=== PATIENT | female | born 1985 | race Native Hawaiian/Other Pacific Islander ===

== ENCOUNTER 2016-11-29 16:21 | Emergency (ER) | payer BC ==
[2016-11-29 17:18] LABS: MEAN CELL VOLUME 89.3 FL (80.0-100.0); MEAN CORPUSCULAR HEMOGLOBIN 30.4 PG (27.0-34.0); PLATELET COUNT 221 TH/MM3 (150-450); RED BLOOD COUNT 3.81 MIL/MM3 (4.00-5.30); RED CELL DISTRIBUTION WIDTH 12.8 % (11.6-17.2); REVIEW FLAG FINAL; WHITE BLOOD COUNT 6.7 TH/MM3 (4.0-11.0)
[2016-11-29 17:33] LABS: BACTERIA, URINE OCC /hpf; BLOOD, URINE NEG (NEG); COMMENT (UR) CULT NOT INDICATED; CULTURE IF INDICATED CULT NOT INDICATED; GLUCOSE,URINE NEG (NEG); KETONE, URINE TRACE mg/dL (NEG); NITRITE,URINE NEG (NEG); PH, URINE 6.5 (5.0-8.5); SQUAMOUS EPITHELIAL CELL URINE 2 /hpf (0-5); URINE COLOR LIGHT-YELLOW (YELLW/STRAW)
[2016-11-29 17:50] LABS: ALT (GPT) 12 U/L (10-53); ANION GAP 11 MEQ/L (5-15); AST (GOT) 14 U/L (15-37); BICARBONATE 22.4 MEQ/L (21.0-32.0); BLOOD UREA NITROGEN 7 MG/DL (7-18); CHLORIDE 106 MEQ/L (98-107); GLOMERULAR FILTRATION RATE 161 ML/MIN (>89); POTASSIUM 3.6 MEQ/L (3.5-5.1); SODIUM (NA) 139 MEQ/L (136-145); URIC ACID 4.5 MG/DL (2.6-6.0)
[2016-11-29 17:52] LABS: ALKALINE PHOSPHATASE 241 U/L (45-117); TOTAL BILIRUBIN ADULT 0.2 MG/DL (0.2-1.0)
[2016-11-29 18:29] VITALS: BP 117/70; PULSE 87
--- NOTE | 2016-11-29 18:34 | PD ---
HPI Chief Complaint This patient sent over for blood pressure evaluations [facility] eval lab from Dr. Leal's office Date Seen: Nov 29, 2016 Travel History International Travel<30 Days: No Contact w/Intl Traveler<30Days: No Known Affected Area: No History of Present Illness HPI This patient is a 31-year-old white female at 36 weeks referred over for [facility] evaluation. She denies pain bleeding or rupture the membranes. heart rate tracing is reactive is not jason. She states that her blood pressures periodically been elevated on some of her visits that she has no history of hypertension prior to . Today the office her blood pressure was 140-150/90-100 and she was sent over. Para: 0 : 1 History Past Medical History Medical History: Denies Significant Hx Review of Systems General / Constitutional: No: Fever, Weight Gain, Chills, Other HENT: No: Headaches, Vertigo, Lightheadedness Gastrointestinal: No: Nausea, Vomiting, Diarrhea Physical Exam Narrative GENERAL: Well-nourished, well-developed patient. SKIN: Warm and dry. HEAD: Normocephalic and atraumatic. EYES: No scleral icterus. No injection or drainage. ENT: No nasal drainage noted. Mucous membranes pink. Airway patent. NECK: Supple, trachea midline. No JVD. CARDIOVASCULAR: Regular rate and rhythm without murmurs, gallops, or rubs. RESPIRATORY: Breath sounds equal bilaterally. No accessory muscle use. BREASTS: Bilateral exam showed no masses , no retractions, no nipple discharge. ABDOMEN/GI: Abdomen soft, non-tender, bowel sounds present, no rebound, no guarding Gravid to [-36] weeks size Fundal Height: [-35 cm] GENITOURINARY: External Genitalia: intact and normal in appearance BUS glands: [-] Cervix: [-not checked today] Membranes: [intact ] Uterine Contractions: [irreg-] FHT's: Category: [1-] Baseline: [144-] Reactive: [-yes] Variability: [mod-] Decels: [none-] EXTREMITIES: No cyanosis , + 3-4+ edema with pitting . BACK: Nontender without obvious deformity. No CVA tenderness. NEUROLOGICAL: Awake and alert. Motor and sensory grossly within normal limits. Five out of 5 muscle strength in all muscle groups. Normal speech.2+ DTRs Data Data Orders Vital Signs (Adult) .ON ADMISSION (11/29/16 16:44) ^ Labor Status (11/29/16 16:44) Urinalysis - C+S If Indicated (11/29/16 16:44) Cbc No Diff, Includes Plts (11/29/16 16:44) Comprehensive Metabolic Panel (11/29/16 16:44) Uric Acid (11/29/16 16:44) Labs Laboratory Tests Test 11/29/16 11/29/16 16:45 16:56 Urine Color LIGHT-YELLOW Urine Turbidity CLEAR Urine pH 6.5 Urine Specific [place] 1.006 Urine Protein NEG Urine Glucose (UA) NEG Urine Ketones TRACE Urine Occult Blood NEG Urine Nitrite NEG Urine Bilirubin NEG Urine Urobilinogen LESS THAN 2.0 Urine Leukocyte Esterase LARGE Urine RBC 1 Urine WBC 2 Urine Squamous Epithelial 2 Cells Urine Bacteria OCC Microscopic Urinalysis Comment CULT NOT INDICATED White Blood Count 6.7 Red Blood Count 3.81 Hemoglobin 11.6 Hematocrit 34.0 Mean Corpuscular Volume 89.3 Mean Corpuscular Hemoglobin 30.4 Mean Corpuscular Hemoglobin 34.0 Concent Red Cell Distribution Width 12.8 Platelet Count 221 Mean Platelet Volume 8.6 Sodium Level 139 Potassium Level 3.6 Chloride Level 106 Carbon Dioxide Level 22.4 Anion Gap 11 Blood Urea Nitrogen 7 Creatinine 0.45 Estimat Glomerular Filtration 161 Rate Random Glucose 75 Uric Acid 4.5 Calcium Level 8.7 Total Bilirubin 0.2 Aspartate Amino Transf 14 (AST/SGOT) Alanine Aminotransferase 12 (ALT/SGPT) Alkaline Phosphatase 241 Total Protein 6.8 Albumin 2.8 MDM Interpretation(s) This patient is a 31-year-old white female at [address] Leal and sent over for [facility] evaluation. She's had a couple of the high pressures prior today and today her pressure was up 140 over 90s to 150s over 100. She denies any pain bleeding or rupture the membranes baby is active denies headache or right upper quadrant pain visual changes. She does have 3-4 + edema and pretibial area with pitting normal DTRs noted blood pressures here within normal limits 130/80 and 117/70, urinalysis is negative protein, blood work all within normal limits normal liver functions and normal platelets. Patient states that she feels much better when she's been laying down for a day or [address] Leal gave her a do not work ordered today and note so that she can stay off her feet in at bedrest until delivery basically. I agree with that assessment and plan and she will follow-up with because planned to contact the office to see if he wants her to come back sooner like the end of this week, she'll be discharged today Plan Plan the patient to be at bedrest at home leaking of the bathroom eat and go to her doctor, she is to elevate her legs to help the swelling. Follow-up with her OB doctor as already and advised Diagnosis Diagnosis: Primary Impression: Hypertension affecting , antepartum, third trimester Additional Impression: Edema during in third trimester Disposition: 01 DISCHARGE HOME Condition: Stable Patient Instructions: General Instructions, Movement (ED) Departure Forms: Tests/Procedures Kd Covarrubias II, MD Nov 29, 2016 18:34
== END 2016-11-29 17:00 | disposition home or self-care (01) ==
LOC: HOBED 16:21
DX: O16.3 Unspecified maternal hypertension, third trimester (principal); R60.0 Localized edema; Z3A.36 36 weeks gestation of pregnancy
CPT/HCPCS: 36415; 80053; 81001; 84550; 85027

== ENCOUNTER 2016-12-05 17:05 | Emergency (ER) | payer BC ==
--- NOTE | 2016-12-05 17:25 | PD ---
HPI Chief Complaint BP check Date Seen: Dec 05, 2016 Travel History International Travel<30 Days: No Contact w/Intl Traveler<30Days: No Known Affected Area: No History of Present Illness HPI 31 yo @ 37w2d with EDC 12-24-2016. care with Dr. Leal. Patient has had intermittent elevated BPs in the clinic. She was evaluated one week ago in [place] for this. BPs where WNL and labs were normal. She was asymptomatic. Today in the clinic she again had elevated BPs 180/[address] Leal. She is asymptomatic, no VOSS, visual changed, abdominal pain, and no changes in her LE swelling. Her BPs in [place] today were again all WNL. History Past Medical History Medical History: Denies Significant Hx Obstetric History Obstetric History G1 Past Surgical History Surgical History: No Previous Surgery Family History Family History: Negative Social History Alcohol Use: No Tobacco Use: No Substance Abuse: No Review of Systems General / Constitutional: No: Fever, Chills Eyes: No: Blurred Vision, Visual changes HENT: No: Headaches, Lightheadedness Cardiovascular: No: Chest Pain or Discomfort, Palpitations Respiratory: No: Cough, Short of Breath Gastrointestinal: No: Nausea, Vomiting, Abdominal Pain Genitourinary: No: Urgency, Frequency, Discharge, Vaginal Bleeding Musculoskeletal: No: Limited ROM, Weakness Skin: No Rash, No Itching Neurologic: No: Dizziness, Focal Abnormalities Physical Exam Narrative GENERAL: Well-nourished, well-developed patient. SKIN: Warm and dry. HEAD: Normocephalic and atraumatic. EYES: No scleral icterus. No injection or drainage. ENT: No nasal drainage noted. Mucous membranes pink. Airway patent. NECK: , trachea midline. No JVD. CARDIOVASCULAR: Regular rate, Pulse 100 RESPIRATORY: No accessory muscle use. ABDOMEN/GI: Abdomen soft, non-tender, no rebound, no guarding Gravid TOCO: Rare UC FHT's: Category: I Baseline: 125 Reactive: +accelerations Variability: mod Decels: [-] EXTREMITIES: No cyanosis. +2 non-pitting edema. DTR +2 normal in LE and UE, no clonus BACK: Nontender without obvious deformity. Normal ROM NEUROLOGICAL: Awake and alert. Motor and sensory grossly within normal limits. Normal speech. Data Data Vital Signs Reviewed: Yes Orders Vital Signs (Adult) .ON ADMISSION (12/05/16 17:21) ^ Labor Status (12/05/16 17:21) Urinalysis - C+S If Indicated (12/05/16 17:21) ^ Non Stress Test (12/05/16 17:21) Cbc No Diff, Includes Plts (12/05/16 17:21) Comprehensive Metabolic Panel (12/05/16 17:21) Uric Acid (12/05/16 17:21) Labs Laboratory Tests Test 12/05/16 12/05/16 15:15 18:05 Urine Color YELLOW (YELLW/STRAW) Urine Turbidity HAZY (CLEAR) Urine pH 7.0 (5.0-8.5) Urine Specific [place] 1.009 (1.002-1.035) Urine Protein NEG mg/dL (NEG-TRACE) Urine Glucose (UA) NEG mg/dL (NEG) Urine Ketones NEG mg/dL (NEG) Urine Occult Blood NEG (NEG) Urine Nitrite NEG (NEG) Urine Bilirubin NEG (NEG) Urine Urobilinogen LESS THAN 2.0 MG/DL (LESS THAN 2.0) Urine Leukocyte Esterase LARGE (NEG) Urine RBC 1 /hpf (0-3) Urine WBC 3 /hpf (0-5) Urine Squamous Epithelial 3 /hpf (0-5) Cells Urine Bacteria OCC /hpf (NONE) Urine Mucus FEW /lpf (OCC) Microscopic Urinalysis Comment CULT NOT INDICATED White Blood Count 6.3 TH/MM3 (4.0-11.0) Red Blood Count 3.68 MIL/MM3 (4.00-5.30) Hemoglobin 11.3 GM/DL (11.6-15.3) Hematocrit 33.0 % (35.0-46.0) Mean Corpuscular Volume 89.8 FL (80.0-100.0) Mean Corpuscular Hemoglobin 30.6 PG (27.0-34.0) Mean Corpuscular Hemoglobin 34.1 % Concent (32.0-36.0) Red Cell Distribution Width 13.2 % (11.6-17.2) Platelet Count 205 TH/MM3 (150-450) Mean Platelet Volume 8.6 FL (7.0-11.0) Sodium Level 140 MEQ/L (136-145) Potassium Level 3.9 MEQ/L (3.5-5.1) Chloride Level 107 MEQ/L (98-107) Carbon Dioxide Level 21.5 MEQ/L (21.0-32.0) Anion Gap 12 MEQ/L (5-15) Blood Urea Nitrogen 8 MG/DL (7-18) Creatinine 0.51 MG/DL (0.50-1.00) Estimat Glomerular Filtration 140 ML/MIN Rate (>89) Random Glucose 65 MG/DL (74-106) Uric Acid 4.6 MG/DL (2.6-6.0) Calcium Level 8.7 MG/DL (8.5-10.1) Total Bilirubin 0.2 MG/DL (0.2-1.0) Aspartate Amino Transf 13 U/L (15-37) (AST/SGOT) Alanine Aminotransferase 12 U/L (10-53) (ALT/SGPT) Alkaline Phosphatase 264 U/L (45-117) Total Protein 6.8 GM/DL (6.4-8.2) Albumin 2.7 GM/DL (3.4-5.0) Vital Signs Date Time Temp Pulse Resp B/P Pulse Ox O2 Delivery O2 Flow Rate FiO2 12/05/16 17:40 103 101 122/70 111/70 12/05/16 17:29 98.2 20 12/05/16 17:27 103 126/88 MDM Interpretation(s) 37 weeks Elevated BPs in clinic only, normal at times of further evaluation Asymptomatic Repeat labs normal and no proteinuria. Normal exam. CAT I FHT Narrative Course / MDM D/c home PIH precautions F/u with Dr. Leal or PRN Diagnosis Diagnosis: Primary Impression: Hypertension affecting , antepartum, third trimester Additional Impressions: Edema during in third trimester 37 weeks gestation of Disposition: 01 DISCHARGE HOME Condition: Good Silvia Win MD Dec 05, 2016 17:25
[2016-12-05 17:27] VITALS: BP 126/88; PULSE 103
[2016-12-05 17:29] VITALS: RESP 20; TEMP 98.2
[2016-12-05 17:40] VITALS: BP 122/70; PULSE 103
[2016-12-05 18:22] LABS: MEAN CELL VOLUME 89.8 FL (80.0-100.0); MEAN CORPUSCULAR HEMOGLOBIN 30.6 PG (27.0-34.0); MEAN CORPUSCULAR HGB CONC 34.1 % (32.0-36.0); PLATELET COUNT 205 TH/MM3 (150-450); RED BLOOD COUNT 3.68 MIL/MM3 (4.00-5.30); RED CELL DISTRIBUTION WIDTH 13.2 % (11.6-17.2); REVIEW FLAG FINAL; WHITE BLOOD COUNT 6.3 TH/MM3 (4.0-11.0)
[2016-12-05 18:26] LABS: BACTERIA, URINE OCC /hpf; BLOOD, URINE NEG (NEG); COMMENT (UR) CULT NOT INDICATED; CULTURE IF INDICATED CULT NOT INDICATED; GLUCOSE,URINE NEG (NEG); KETONE, URINE NEG (NEG); MUCUS URINE FEW /lpf (OCC); NITRITE,URINE NEG (NEG); SQUAMOUS EPITHELIAL CELL URINE 3 /hpf (0-5); URINE COLOR YELLOW (YELLW/STRAW)
[2016-12-05 18:44] LABS: ANION GAP 12 MEQ/L (5-15); AST (GOT) 13 U/L (15-37); BICARBONATE 21.5 MEQ/L (21.0-32.0); BLOOD UREA NITROGEN 8 MG/DL (7-18); CHLORIDE 107 MEQ/L (98-107); GLOMERULAR FILTRATION RATE 140 ML/MIN (>89); POTASSIUM 3.9 MEQ/L (3.5-5.1); SODIUM (NA) 140 MEQ/L (136-145)
[2016-12-05 18:50] LABS: ALKALINE PHOSPHATASE 264 U/L (45-117); ALT (GPT) 12 U/L (10-53); TOTAL BILIRUBIN ADULT 0.2 MG/DL (0.2-1.0); URIC ACID 4.6 MG/DL (2.6-6.0)
== END 2016-12-05 19:14 | disposition home or self-care (01) ==
LOC: HOBED 17:05
DX: O16.9 Unspecified maternal hypertension, unspecified trimester (principal); R60.0 Localized edema; Z3A.37 37 weeks gestation of pregnancy
CPT/HCPCS: 36415; 80053; 81001; 84550; 85027

== ENCOUNTER 2016-12-11 14:50 | Emergency (ER) | payer BC ==
[2016-12-11] VITALS (15 sets, daily range): BP systolic 114–143; BP diastolic 58–87; PULSE 90–109; RESP 17; TEMP 98.2
[2016-12-11 16:05] LABS: AUTOMATED NEUTROPHIL # 3.6 TH/MM3 (1.8-7.7); BASOPHIL % 0.4 % (0.0-2.0); EOSINOPHIL # 0.1 TH/MM3 (0-0.4); EOSINOPHIL % 1.4 % (0.0-4.0); HEMATOCRIT 34.4 % (35.0-46.0); HEMO FLAGS DIFF FINAL; LYMPH % 25.4 % (9.0-44.0); LYMPHOCYTE # 1.5 TH/MM3 (1.0-4.8); MEAN CELL VOLUME 89.8 FL (80.0-100.0); MEAN CORPUSCULAR HEMOGLOBIN 31.1 PG (27.0-34.0); MEAN CORPUSCULAR HGB CONC 34.7 % (32.0-36.0); MONO % 9.8 % (0.0-8.0); PLATELET COUNT 198 TH/MM3 (150-450); RED BLOOD COUNT 3.83 MIL/MM3 (4.00-5.30); RED CELL DISTRIBUTION WIDTH 13.4 % (11.6-17.2); WHITE BLOOD COUNT 5.8 TH/MM3 (4.0-11.0)
[2016-12-11 16:18] LABS: BACTERIA, URINE RARE /hpf; BLOOD, URINE NEG (NEG); COMMENT (UR) CULT NOT INDICATED; CULTURE IF INDICATED CULT NOT INDICATED; GLUCOSE,URINE NEG (NEG); KETONE, URINE NEG (NEG); NITRITE,URINE NEG (NEG); SQUAMOUS EPITHELIAL CELL URINE 5 /hpf (0-5); URINE COLOR LIGHT-YELLOW (YELLW/STRAW)
[2016-12-11 16:35] LABS: ALT (GPT) 13 U/L (10-53); ANION GAP 7 MEQ/L (5-15); AST (GOT) 14 U/L (15-37); BICARBONATE 26.1 MEQ/L (21.0-32.0); BLOOD UREA NITROGEN 9 MG/DL (7-18); CHLORIDE 105 MEQ/L (98-107); GLOMERULAR FILTRATION RATE 110 ML/MIN (>89); LDH SERUM 175 U/L (84-246); POTASSIUM 4.6 MEQ/L (3.5-5.1); SODIUM (NA) 138 MEQ/L (136-145)
[2016-12-11 16:37] LABS: ALKALINE PHOSPHATASE 274 U/L (45-117); TOTAL BILIRUBIN ADULT 0.3 MG/DL (0.2-1.0)
--- NOTE | 2016-12-11 17:02 | PD ---
HPI Chief Complaint Headaches, dizziness Date Seen: Dec 11, 2016 Time Seen: 16:00 Travel History International Travel<30 Days: No Contact w/Intl Traveler<30Days: No Known Affected Area: No History of Present Illness HPI 31-year-old at 38 weeks and 1 day of gestation, EDC 12/24/16, patient presents to OB ED with complaints of feeling dizzy and having dull headache she denies episodes of epigastric pain. Patient denies cramping, contractions, leakage of fluids, vaginal bleeding and decreased movement. She reports presence of movements. care is with Dr. Leal, care is significant for episodes of labor increasing blood pressures however patient has no history of chronic hypertension. Blood pressure all in OB ED is 143/87, 129/64, 127/58, 132/83. Patient stated that dizziness has now resolved. Para: 0 : 1 Miscarriage: 0 : 0 History Past Medical History Narrative Medical Denies Medical History: Denies Significant Hx Obstetric History Obstetric History Primigravida Past Surgical History Narrative Surgical Denies Surgical History: No Previous Surgery Family History Narrative Family History Significant for a father with a history of hypertension, hypercholesterol and non-Hodgkin's lymphoma. The father is status post cardiac stent placement Social History Alcohol Use: No Tobacco Use: No Substance Abuse: No Allergies-Medications (Allergen,Severity, Reaction): Coded Allergies: No Known Allergies (Unverified , 12/11/16) Review of Systems Except as stated in HPI: all other systems reviewed are Neg HENT: Headaches, Other (dizziness) Genitourinary: Other () Physical Exam Narrative GENERAL: Well-nourished, well-developed patient. SKIN: Warm and dry. HEAD: Normocephalic and atraumatic. EYES: No scleral icterus. No injection or drainage. ENT: No nasal drainage noted. Mucous membranes pink. Airway patent. NECK: Supple, trachea midline. No JVD. CARDIOVASCULAR: Regular rate and rhythm without murmurs, gallops, or rubs. RESPIRATORY: Breath sounds equal bilaterally. No accessory muscle use. BREASTS: Bilateral exam showed no masses , no retractions, no nipple discharge. ABDOMEN/GI: Abdomen soft, gravid, non-tender, bowel sounds present, no rebound, no guarding Gravid to 38 weeks size Fundal Height: 38 centimeters GENITOURINARY: External Genitalia: intact and normal in appearance BUS glands: Normal Cervix: Closed, long, posterior Dilatation: Closed Effacement: 50% Station: -3 Presentation: Cephalic Membranes: Intact Uterine Contractions: None FHT's: Category: one Baseline: 140s Reactive: Yes Variability: Moderate Decels: None EXTREMITIES: No cyanosis or edema. BACK: Nontender without obvious deformity. No CVA tenderness. NEUROLOGICAL: Awake and alert. Motor and sensory grossly within normal limits. Five out of 5 muscle strength in all muscle groups. Normal speech. Data Data Vital Signs Reviewed: Yes Orders Vital Signs (Adult) .ON ADMISSION (12/11/16 15:35) ^ Labor Status (12/11/16 15:35) Urinalysis - C+S If Indicated (12/11/16 15:35) ^ Non Stress Test (12/11/16 15:35) ^ Hydration (12/11/16 15:35) Comprehensive Metabolic Panel (12/11/16 15:35) Uric Acid (12/11/16 15:35) Complete Blood Count With Diff (12/11/16 15:35) Ldh Serum (12/11/16 15:35) Protein Creat Ratio, Random Ur (12/11/16 15:35) Labs Laboratory Tests Test 12/11/16 12/11/16 15:05 15:28 Urine Color LIGHT-YELLOW Urine Turbidity CLEAR Urine pH 7.0 Urine Specific [place] 1.004 Urine Protein NEG Urine Glucose (UA) NEG Urine Ketones NEG Urine Occult Blood NEG Urine Nitrite NEG Urine Bilirubin NEG Urine Urobilinogen LESS THAN 2.0 Urine Leukocyte Esterase LARGE Urine RBC LESS THAN 1 Urine WBC 1 Urine Squamous Epithelial 5 Cells Urine Bacteria RARE Microscopic Urinalysis Comment CULT NOT INDICATED Urine Random Creatinine 18 Urine Random Total Protein 6 Urine Protein/Creatinine Ratio 0.33 White Blood Count 5.8 Red Blood Count 3.83 Hemoglobin 11.9 Hematocrit 34.4 Mean Corpuscular Volume 89.8 Mean Corpuscular Hemoglobin 31.1 Mean Corpuscular Hemoglobin 34.7 Concent Red Cell Distribution Width 13.4 Platelet Count 198 Mean Platelet Volume 9.2 Neutrophils (%) (Auto) 63.0 Lymphocytes (%) (Auto) 25.4 Monocytes (%) (Auto) 9.8 Eosinophils (%) (Auto) 1.4 Basophils (%) (Auto) 0.4 Neutrophils # (Auto) 3.6 Lymphocytes # (Auto) 1.5 Monocytes # (Auto) 0.6 Eosinophils # (Auto) 0.1 Basophils # (Auto) 0.0 CBC Comment DIFF FINAL Differential Comment Sodium Level 138 Potassium Level 4.6 Chloride Level 105 Carbon Dioxide Level 26.1 Anion Gap 7 Blood Urea Nitrogen 9 Creatinine 0.63 Estimat Glomerular Filtration 110 Rate Random Glucose 110 Uric Acid 5.0 Calcium Level 9.3 Total Bilirubin 0.3 Aspartate Amino Transf 14 (AST/SGOT) Alanine Aminotransferase 13 (ALT/SGPT) Alkaline Phosphatase 274 Lactate Dehydrogenase 175 Total Protein 6.9 Albumin 2.9 MDM Medical Record Reviewed: Yes Diagnosis Diagnosis: Primary Impression: 38 weeks gestation of Additional Impressions: Gestational hypertension w/o significant proteinuria in 3rd trimester Dizzinesses Disposition: 01 DISCHARGE HOME Condition: Stable Patient Instructions: Early Labor Signs (ED), General Instructions, Having Your Baby: The Labor Process (GEN) Additional Instructions: Patient is doing well at this point, preeclamptic labs are normal, headaches and dizziness had resolved after IV hydration. Patient instructed to return to labor and delivery if increased symptoms, cramping, contractions, leakage of fluids, vaginal bleeding or decreased movements. Drink plenty of fluids. Monitor kick counts. Keep office appointment as scheduled. Patient has appointment with her primary care OB physician tomorrow. Carson Barajas MD Dec 11, 2016 17:02
== END 2016-12-11 17:35 | disposition home or self-care (01) ==
LOC: HOBED 14:50
DX: O13.3 Gestational [pregnancy-induced] hypertension without significant proteinuria, third trimester (principal); R42 Dizziness and giddiness; R51 Headache; Z3A.38 38 weeks gestation of pregnancy
CPT/HCPCS: 59025; 80053; 81001; 82570; 83615; 84156; 84550; 85025

== ENCOUNTER 2016-12-26 12:06 | Emergency (ER) | payer BC ==
[2016-12-26 12:49] VITALS: BP 112/78; PULSE 87
--- NOTE | 2016-12-26 12:51 | PD ---
HPI Chief Complaint fluid per vagina Date Seen: Dec 26, 2016 Time Seen: 12:30 Travel History International Travel<30 Days: No Contact w/Intl Traveler<30Days: No Known Affected Area: No History of Present Illness HPI at 40.3 weeks gestation here for fluid per vagina this am x 1. Saw provider last week with stripping of membranes done, cervix closed at that time Para: 0 : 1 Last Menstrual Period: Dec 26, 2016 ([facility] 12/23/2015) Miscarriage: 0 : 0 History Past Medical History Medical History: Denies Significant Hx Past Surgical History Surgical History: No Previous Surgery Family History Family History: Negative Social History Alcohol Use: No Tobacco Use: No Substance Abuse: No Allergies-Medications (Allergen,Severity, Reaction): Coded Allergies: No Known Allergies (Unverified , 12/11/16) Review of Systems Except as stated in HPI: all other systems reviewed are Neg Physical Exam Narrative GENERAL: Well-nourished, well-developed patient. SKIN: Warm and dry. HEAD: Normocephalic and atraumatic. EYES: No scleral icterus. No injection or drainage. ENT: No nasal drainage noted. Mucous membranes pink. Airway patent. NECK: Supple, trachea midline. No JVD. CARDIOVASCULAR: Regular rate and rhythm without murmurs, gallops, or rubs. RESPIRATORY: Breath sounds equal bilaterally. No accessory muscle use. BREASTS: Bilateral exam showed no masses , no retractions, no nipple discharge. ABDOMEN/GI: Abdomen soft, non-tender, bowel sounds present, no rebound, no guarding Gravid to [-] 40 weeks size Fundal Height: [-] GENITOURINARY: External Genitalia: intact and normal in appearance BUS glands: [-]nl Cervix: [-]closed Dilatation: [-] closed Effacement: [-] 80 Station: [-] -2 Presentation: [-] vertex Membranes: [intact or ruptured] amnisure negative, no obvious rupture of membranes Uterine Contractions: [-] FHT's: Category: [-] 1 Baseline: [-] 140 Reactive: [-] mod Variability: [-mod] Decels: [-] absent EXTREMITIES: No cyanosis or edema. BACK: Nontender without obvious deformity. No CVA tenderness. NEUROLOGICAL: Awake and alert. Motor and sensory grossly within normal limits. Five out of 5 muscle strength in all muscle groups. Normal speech. Data Data Vital Signs Reviewed: Yes Orders Vital Signs (Adult) .ON ADMISSION (12/26/16 12:36) ^ Labor Status (12/26/16 12:36) Pamg-1 Test .ONCE (12/26/16 12:36) MDM Medical Record Reviewed: Yes Plan Repeat bp 112/78 Discharge home, has follow up tomorrow Diagnosis Diagnosis: Primary Impression: Intact amniotic membranes during in third trimester Additional Impression: 40 weeks gestation of Disposition: DISCHARGE HOME Amanda Main MD Dec 26, 2016 12:51
== END 2016-12-26 13:04 | disposition home or self-care (01) ==
LOC: HOBED 12:06
DX: O26.93 Pregnancy related conditions, unspecified, third trimester (principal); Z3A.40 40 weeks gestation of pregnancy
CPT/HCPCS: 59025; 84112

== ENCOUNTER 2016-12-29 02:48 | Inpatient (IN) | payer BC ==
[~2016-12-29] VITALS: Ht 152.4 cm; Wt 90.3 kg
[2016-12-29] VITALS (39 sets, daily range): BP systolic 127–187; BP diastolic 78–114; PULSE 87–124; RESP 0–18; TEMP 97.8–98.3; O2SAT 100
[2016-12-29] MEDS ORDERED: LACTATED RINGER'S 1000 ML INJ 1,000 ML IV PRN (03:17)
[2016-12-29] MEDS ORDERED: CALNTAB (03:29)
--- NOTE | 2016-12-29 03:29 | PD ---
HPI Chief Complaint leaking fluid Date Seen: Dec 29, 2016 Travel History International Travel<30 Days: No Contact w/Intl Traveler<30Days: No History of Present Illness HPI 31 yo @ 40w5d with [facility] 12-24-2016. care with Dr. Leal. with persistent N/V and some labile BPs without symptoms. No medications. Patient presents with c/o leakage of fluid since around 1:30 this AM. Clear fluid. Occasional UC. No VB. +FM. GBS POSITIVE. History Past Medical History Narrative Medical Abnormal pap smear Obstetric History Obstetric History Past Surgical History Narrative Surgical LEEP 2006 Family History Family History: Negative Social History Alcohol Use: No Tobacco Use: No Substance Abuse: No Allergies-Medications (Allergen,Severity, Reaction): Coded Allergies: No Known Allergies (Unverified , 12/11/16) Home Meds Reported Medications Vitamin (Cal[place])1 Tab Tab 12/29/16 Review of Systems General / Constitutional: No: Fever, Chills Eyes: No: Blurred Vision, Visual changes HENT: No: Headaches, Lightheadedness Cardiovascular: No: Chest Pain or Discomfort, Palpitations Respiratory: No: Cough, Short of Breath Gastrointestinal: No: Nausea, Vomiting, Abdominal Pain Genitourinary: Discharge (leakage of fluid), No: Urgency, Frequency, Dysuria, Vaginal Bleeding Musculoskeletal: No: Limited ROM, Weakness Skin: No Rash, No Itching Neurologic: No: Syncope, Focal Abnormalities Physical Exam Narrative GENERAL: Well-nourished, well-developed patient. SKIN: Warm and dry. HEAD: Normocephalic and atraumatic. EYES: No scleral icterus. No injection or drainage. ENT: No nasal drainage noted. Mucous membranes pink. Airway patent. NECK:trachea midline. No JVD. CARDIOVASCULAR: Regular rate and rhythm without murmurs, gallops, or rubs. RESPIRATORY: Breath sounds equal bilaterally. No accessory muscle use. ABDOMEN/GI: Abdomen soft, non-tender, bowel sounds present, no rebound, no guarding Gravid EFW 4000g GENITOURINARY: External Genitalia: intact and normal in appearance BUS glands: [-] SVE FT/90/-2 (prior LEEP) clear fluid, grossly ruptured FHT's: Category: I Baseline: 135 Reactive: +accelerations 155 Variability: mod Decels: [-] EXTREMITIES: No cyanosis or edema. BACK: Nontender without obvious deformity. No CVA tenderness. NEUROLOGICAL: Awake and alert. Motor and sensory grossly within normal limits. Normal speech. Data Data Vital Signs Reviewed: Yes Orders Vital Signs (Adult) .ON ADMISSION (12/29/16 02:57) ^ Labor Status (12/29/16 02:57) ^ Non Stress Test (12/29/16 02:57) Pamg-1 Test .ONCE (12/29/16 02:57) Ob (2e) Additional Admit Info (12/29/16 03:16) Admit To Inpatient (12/29/16 ) Code Status (12/29/16 03:17) Vital Signs (Adult) .Per protocol (12/29/16 03:17) Activity Oob Ad Daniela (12/29/16 03:17) ^ Heart (12/29/16 03:17) ^ Amnioinfusion (12/29/16 03:17) Urinary Catheter Management .ONCE (12/29/16 03:17) Diet Liquid (12/29/16 Breakfast) Lactated Ringer's 1000 Ml Inj (Lr 1000 M (12/29/16 03:17) Lactated Ringer's 1000 Ml Inj (Lr 1000 M (12/29/16 03:17) Sodium Chlorid 0.9% 500 Ml Inj (Ns 500 M (12/29/16 03:30) Sodium Chlor 0.9% 1000 Ml Inj (Ns 1000 M (12/29/16 03:37) Lidocaine 1% Inj (50 Ml) (Xylocaine 1% I (12/29/16 03:30) Citric Acid-Sodium Citrate Liq (Bicitra (12/29/16 03:30) Ondansetron Inj (Zofran Inj) (12/29/16 03:30) Fentanyl Inj (Fentanyl Inj) (12/29/16 03:30) Fentanyl Inj (Fentanyl Inj) (12/29/16 03:30) Penicillin G Potassium Inj (Pfizerpen-G (12/29/16 03:30) Penicillin G Potassium Inj (Pfizerpen-G (12/29/16 07:30) Complete Blood Count With Diff (12/29/16 03:17) Hold Clot (12/29/16 03:17) Abo/Rh Blood Type (12/29/16 03:17) Resp Oxygen Non Rebreathe Mask (12/29/16 ) ^ Epidural / Intrathecal Infus (12/29/16 03:17) Oxytocin 30 Units-500ml Premix (Pitocin (12/29/16 03:30) Lidocaine 1% Inj (50 Ml) (Xylocaine 1% I (12/29/16 03:30) Light Mineral Oil (Muri-Lube Oil) (12/29/16 03:30) Inpatient Certification (12/29/16 ) Labs Vital Signs Date Time Temp Pulse Resp B/P Pulse Ox O2 Delivery O2 Flow Rate FiO2 12/29/16 03:10 98.3 18 12/29/16 03:10 92 133/93 MDM Narrative Course / MDM 40 weeks PROM, clear fluid GBS POSITIVE Irregular UC, mild BPs stable, asymptomatic CAT I FHT Plan Admit Mike for prophylaxis Discussed pitocin as appropriate No questions at this time Physician Communication Dr. Elvis Win,Silvia Schmidt MD Dec 29, 2016 03:28
[2016-12-29] MEDS ORDERED: ONDANSETRON HCL 4 MG/2 ML VIAL IV PRN (03:30)
[2016-12-29] MEDS ORDERED: LIDOCAINE HCL 1% 50 ML VIAL I-DERMAL PRN (03:30)
[2016-12-29] MEDS ORDERED: CITRIC ACID-SODIUM CITRATE LIQ 30 ML UDC PO SCH (03:30)
[2016-12-29] MEDS ORDERED: PENICILLIN G POTASSIUM INJ 5,000,000 UNITS in SODIUM CHLORIDE 0.9% INJ 100 ML IV ONE (03:30)
[2016-12-29] MEDS ORDERED: MINERAL OIL 10 ML VIAL TOPICAL PRN (03:30)
[2016-12-29] MEDS ORDERED: OXYTOCIN 30 UNITS-500ML PREMIX 500 ML IV ONE (03:30)
[2016-12-29] MEDS ORDERED: LIDOCAINE HCL 1% 50 ML VIAL INFIL PRN (03:30)
[2016-12-29] MEDS ORDERED: SODIUM CHLORID 0.9% 500 ML INJ 500 ML IV PRN (03:30)
[2016-12-29] MEDS ORDERED: SODIUM CHLOR 0.9% 1000 ML INJ 1,000 ML IV PRN (03:37)
[2016-12-29 04:32] LABS: AUTOMATED NEUTROPHIL # 4.1 TH/MM3 (1.8-7.7); BASOPHIL % 0.4 % (0.0-2.0); EOSINOPHIL # 0.1 TH/MM3 (0-0.4); EOSINOPHIL % 1.5 % (0.0-4.0); HEMATOCRIT 34.4 % (35.0-46.0); HEMO FLAGS DIFF FINAL; LYMPH % 26.9 % (9.0-44.0); LYMPHOCYTE # 1.7 TH/MM3 (1.0-4.8); MEAN CELL VOLUME 89.5 FL (80.0-100.0); MEAN CORPUSCULAR HEMOGLOBIN 31.5 PG (27.0-34.0); MEAN CORPUSCULAR HGB CONC 35.2 % (32.0-36.0); MONO % 7.4 % (0.0-8.0); NEUT % 63.8 % (16.0-70.0); PLATELET COUNT 173 TH/MM3 (150-450); RED BLOOD COUNT 3.84 MIL/MM3 (4.00-5.30); RED CELL DISTRIBUTION WIDTH 14.3 % (11.6-17.2); WHITE BLOOD COUNT 6.4 TH/MM3 (4.0-11.0)
[2016-12-29] MEDS: LACTATED RINGER'S 1000 ML INJ 1,000 ML IV SCH ×3 (04:37→18:00)
[2016-12-29] MEDS ORDERED: OXYTOCIN 30 UNITS-500ML PREMIX 500 ML IV SCH (06:00)
[2016-12-29] MEDS: PENICILLIN G POTASSIUM INJ 2,500,000 UNITS in SODIUM CHLORIDE 0.9% INJ 100 ML IV SCH ×4 (08:00→20:05)
[2016-12-29] MEDS ORDERED: MEPERIDINE HCL 50 MG/ML VIAL ONE (11:31)
[2016-12-29] MEDS ORDERED: MEPERIDINE HCL 50 MG/ML VIAL IM ONE (11:45)
[2016-12-29] MEDS ORDERED: PROMETHAZINE INJ 25 MG/ML VIAL IM ONE (11:45)
[2016-12-29] MEDS ORDERED: fentaNYL 2MCG-BUPIV 0.125% INJ 100 ML ONE (13:07)
[2016-12-29] MEDS ORDERED: NO SYSTEM NARCOTICS XX PRN (15:30)
[2016-12-29] MEDS ORDERED: ePHEDrine/NS 50 MG/5 ML SYR IV PRN (15:30)
[2016-12-29] MEDS ORDERED: DO NOT ADMINISTER ANTICOAGULANTS XX PRN (15:30)
[2016-12-29] MEDS ORDERED: NIFEdipine 10 MG CAP ONE (15:47)
[2016-12-29] MEDS ORDERED: NIFEdipine 10 MG CAP PO ONE (16:00)
[2016-12-29] MEDS ORDERED: LABETALOL HCL 100 MG/20 ML VIAL ONE (17:04)
[2016-12-29] MEDS: fentaNYL 2MCG-BUPIV 0.125% 100 ML EPIDURAL SCH ×2 (17:45→18:46)
[2016-12-29] MEDS ORDERED: LABETALOL HCL 100 MG/20 ML VIAL IV ONE (17:45)
[2016-12-29 17:47] LABS: ALT (GPT) 10 U/L (10-53); ANION GAP 12 MEQ/L (5-15); AST (GOT) 20 U/L (15-37); BICARBONATE 20.4 MEQ/L (21.0-32.0); BLOOD UREA NITROGEN 9 MG/DL (7-18); CHLORIDE 109 MEQ/L (98-107); GLOMERULAR FILTRATION RATE 131 ML/MIN (>89); POTASSIUM 3.7 MEQ/L (3.5-5.1); SODIUM (NA) 141 MEQ/L (136-145)
[2016-12-29 17:48] LABS: ALKALINE PHOSPHATASE 312 U/L (45-117); TOTAL BILIRUBIN ADULT 0.5 MG/DL (0.2-1.0)
[2016-12-29 17:55] LABS: BLOOD, URINE MOD (NEG); COMMENT (UR) CULTURE INDICATED; CULTURE IF INDICATED CULTURE INDICATED; GLUCOSE,URINE NEG (NEG); KETONE, URINE 40 mg/dL (NEG); MUCUS URINE FEW /lpf (OCC); NITRITE,URINE NEG (NEG); PH, URINE 6.5 (5.0-8.5); SQUAMOUS EPITHELIAL CELL URINE 1 /hpf (0-5); URINE COLOR LIGHT-YELLOW (YELLW/STRAW)
[2016-12-29] MEDS ORDERED: diphenhydrAMINE HCL 50 MG/ML VIAL IV PUSH ONE (20:30)
[2016-12-30] MEDS: PENICILLIN G POTASSIUM INJ 2,500,000 UNITS in SODIUM CHLORIDE 0.9% INJ 100 ML IV SCH (00:06)
[2016-12-30] MEDS ORDERED: LACTATED RINGER'S 1000 ML IV SCH (01:15)
[2016-12-30] MEDS ORDERED: CITRIC ACID-SODIUM CITRATE LIQ 30 ML UDC PO SCH (01:15)
[2016-12-30] MEDS ORDERED: ceFAZolin 2 GM PREMIX 50 ML IV SCH (01:15)
[2016-12-30] MEDS ORDERED: LACTATED RINGER'S 1000 ML IV ONE (01:15)
[2016-12-30] MEDS ORDERED: OXYTOCIN 10 UNIT/ML AMP ONE ×2 (01:23→02:00)
[2016-12-30] MEDS ORDERED: ceFAZolin INJ 1,000 MG VIAL ONE (01:27)
[2016-12-30] MEDS ORDERED: EPIDURAL-DIPHENHYDRAMINE HCL 50 MG CAP PO PRN (01:30)
[2016-12-30] MEDS ORDERED: EPIDURAL-DIPHENHYDRAMINE HCL 50 MG/ML VIAL IV PUSH PRN (01:30)
[2016-12-30] MEDS ORDERED: EPIDURAL-NALOXONE HCL 0.4 MG/ML AMP IV PRN (01:30)
[2016-12-30] MEDS ORDERED: EPIDURAL-DO NOT ADMINISTER ANTICOAGULANTS XX PRN (01:30)
[2016-12-30] MEDS ORDERED: EPIDURAL-NO SYSTEMIC NARCOTICS XX PRN (01:30)
[2016-12-30] MEDS ORDERED: OXYTOCIN IV ONE (01:45)
[2016-12-30] MEDS ORDERED: LACTATED RINGER S IV ONE (01:45)
[2016-12-30] MEDS ORDERED: DICLOFENAC SODIUM 37.5 MG/ML VIAL IV PUSH ONE ×2 (01:58→02:00)
[2016-12-30] MEDS ORDERED: METOCLOPRAMIDE HCL 10 MG/2 ML VIAL IV ONE (02:00)
[2016-12-30] MEDS ORDERED: ONDANSETRON HCL 4 MG/2 ML VIAL IV PUSH ONE (02:00)
[2016-12-30] MEDS ORDERED: MIDAZOLAM HCL 2 MG/2 ML VIAL IV ONE (02:00)
[2016-12-30] MEDS ORDERED: DEXAMETHASONE SOD PHOS 4 MG/ML VIAL IV ONE (02:00)
[2016-12-30] MEDS ORDERED: CARBOPROST TROMETHAMINE 250 MCG/ML VIAL IM ONE (02:00)
[2016-12-30] MEDS ORDERED: CARBOPROST TROMETHAMINE 250 MCG/ML VIAL ONE (02:07)
[2016-12-30] MEDS ORDERED: OXYTOCIN INJ 20 UNITS in LACTATED RINGER'S 1000 ML INJ 1,000 ML IV ONE (02:31)
[2016-12-30] MEDS ORDERED: ONDANSETRON HCL 4 MG/2 ML VIAL ONE (02:50)
[2016-12-30] MEDS ORDERED: MORPHINE SULFATE PF 5 MG/10 ML VIAL ONE (02:50)
[2016-12-30] MEDS ORDERED: fentaNYL CITRATE 250 MCG/5 ML AMP ONE (02:50)
[2016-12-30] MEDS ORDERED: MIDAZOLAM HCL 2 MG/2 ML VIAL ONE (02:50)
[2016-12-30] MEDS ORDERED: MAGNESIUM SULFATE 40 GM PREMIX 1,000 ML ONE ×2 (02:54→21:26)
[2016-12-30] MEDS ORDERED: CALCIUM GLUCONATE 10% 1 GM/10 ML VIAL IV PUSH PRN ×2 (03:00→22:30)
[2016-12-30] MEDS ORDERED: SIMETHICONE 80 MG CHEWABLE TAB PO PRN (03:00)
[2016-12-30] MEDS ORDERED: ONDANSETRON HCL 4 MG/2 ML VIAL IV PUSH PRN (03:00)
[2016-12-30] MEDS ORDERED: ZOLPIDEM TARTRATE 5 MG TAB PO PRN (03:00)
[2016-12-30] MEDS ORDERED: OXYTOCIN 30 UNITS-500ML PREMIX 500 ML IV ONE ×2 (03:00)
[2016-12-30] MEDS ORDERED: SODIUM CHLORIDE 0.9% FLUSH 5 ML FLUSH IV PRN (03:00)
[2016-12-30] MEDS ORDERED: LABETALOL HCL 100 MG/20 ML VIAL IV PUSH PRN (04:00)
[2016-12-30] MEDS ORDERED: LACTATED RINGER'S 1000 ML INJ 1,000 ML IV SCH ×2 (07:52→22:30)
[2016-12-30] MEDS ORDERED: OXYC1TAB63 PO (08:36)
[2016-12-30] MEDS ORDERED: IBUP-232 PO (08:36)
[2016-12-30] MEDS: SODIUM CHLORIDE 0.9% FLUSH 5 ML FLUSH IV SCH ×2 (09:00→21:00)
--- NOTE | 2016-12-30 09:43 | HHI.DCPOC ---
Discharge Care Plan Diagnosis: (1) S/P section (2) Hypertension affecting , antepartum, third trimester Your Health Problems Are: delivery Report Symptoms to Your Doctor -Temperate above 100.5 degrees -Redness, of incision or excessive or foul smelling drainage -Unusual pain or calf pain -Increased vaginal bleeding -Painful or difficulty urinating -Feelings of extreme sadness or anxiety after 2 weeks Goals to Promote Your Health * To prevent worsening of your condition and complications * To maintain your health at the optimal level Directions to Meet Your Goals Take your medications as prescribed Follow your dietary instruction Follow activity as directed Ensure plenty of rest for recovery Drink fluids for hydration Keep your appointments as scheduled Take your immunizations and boosters as scheduled If your symptoms worsen call your PCP, if no PCP go to Urgent Care Center or Emergency Room Smoking is Dangerous to Your Health. Avoid second hand smoke Call the 24-hour crisis hotline for domestic abuse at Yoselyn Richter Dec 30, 2016 09:43
[2016-12-30] MEDS: DICLOFENAC SODIUM 37.5 MG/ML VIAL IV PUSH SCH ×2 (11:56→18:31)
[2016-12-30] MEDS ORDERED: OXYTOCIN 30 UNITS-500ML PREMIX 500 ML IV PRN (13:00)
--- NOTE | 2016-12-30 17:35 | MP ---
cc: Nano LEAL MD DATE OF SURGERY 12/30/16 PREOPERATIVE DIAGNOSIS 1. Intrauterine at term 2. Arrest of descent 3. Preeclampsia. POSTOPERATIVE DIAGNOSIS 1. Intrauterine at term 2. Arrest of descent 3. Preeclampsia. PROCEDURE Primary low transverse section. ANESTHESIA Epidural followed by general anesthesia SURGEON Nano Leal MD FINDINGS Normal uterus, normal tubes. She had a hydatid cyst on the left which we incised, was approximately 1 cm x 1 cm. The fallopian tubes were normal length and caliber. The ovaries were normal. Posterior and anterior cul-de-sacs were normal. She had a normal viable weight 9 pounds 15 ounces, Apgars six and nine. Cord pH is pending. She did have uterine atony which required Hemabate. COMPLICATIONS uterine atony recurring Pitocin and Hemabate COUNTS Correct ESTIMATED BLOOD LOSS 800 mL FLUIDS Crystalloids. DISPOSITION The patient tolerated the procedure well, went to recovery room in good condition. INDICATIONS FOR THIS PROCEDURE This is a lady who went through labor fairly normal to 6 or 7. Checked her and with maneuvers we did get her to complete complete, but then after a little over an hour pushing she did not descend at all. At this point, we called the and the patient was taken to the operating room. PROCEDURE IN DETAIL Once in the operating room, she was identified by name band and verbally and the epidural was dosed. A time-out was taken and we began the surgery. However, she did feel it and it was deemed that she needed general anesthesia. Once anesthesia had put her to sleep, the Pfannenstiel was then taken down into the fascia. The fascia was taken off the rectus muscle by blunt and sharp dissection. The rectus muscles were spread bluntly and the peritoneum entered under direct vision without difficulty. The bladder flap was created in the usual fashion and bladder moved out of harm's way. The uterine incision was made in a transverse manner along the lower uterine segment which was well-developed. Clear fluid was noted and although the incision was fairly large, we anticipated a large baby, we needed to use a Kiwi suction to deliver the vertex. The hypopharynx nasopharynx were suctioned. Remainder of the delivered. Cord blood was obtained. Cord gas was obtained as well and the placenta was sent for pathologic diagnosis. The placenta was removed manually and the uterus curettaged twice with a wet lap. Once this was accomplished, the uterine incision was repaired with 0 Vicryl in a running fashion in two layers, the second layer imbricating the first. The cul-de-sac and gutters were cleaned of blood and debris. The uterus was delivered back into the abdomen and the rectus muscles were reapproximated with 0 Vicryl. The fascia was repaired with 0 Vicryl in a running fashion. The subcu was repaired with 3-0 Vicryl and the skin was repaired with a 4-0 Monocryl in subcuticular fashion. During the repair of the uterus, she did require Hemabate which was 250 mcg given into the uterus. At the end of the case, her uterus did seem firm. She tolerated the procedure well and went to the recovery room in good condition. R. MD FELIX Castaneda/ /2:40 AM /5:19 PM MTDKush
[2016-12-30] MEDS ORDERED: MAGNESIUM SULFATE 4GRAM PRMIX-LOAD DOSE IV ONE (22:30)
[2016-12-30] MEDS ORDERED: MAGNESIUM SULFATE 40 GM PREMIX 1,000 ML IV SCH (22:30)
[2016-12-31 05:30] LABS: BASOPHIL % 0.2 % (0.0-2.0); EOSINOPHIL # 0.1 TH/MM3 (0-0.4); EOSINOPHIL % 0.6 % (0.0-4.0); HEMATOCRIT 25.7 % (35.0-46.0); HEMO FLAGS DIFF FINAL; LYMPH % 19.3 % (9.0-44.0); LYMPHOCYTE # 2.1 TH/MM3 (1.0-4.8); MEAN CELL VOLUME 90.7 FL (80.0-100.0); MEAN CORPUSCULAR HEMOGLOBIN 31.5 PG (27.0-34.0); MEAN CORPUSCULAR HGB CONC 34.7 % (32.0-36.0); MONO % 6.3 % (0.0-8.0); NEUT % 73.6 % (16.0-70.0); PLATELET COUNT 163 TH/MM3 (150-450); RED BLOOD COUNT 2.83 MIL/MM3 (4.00-5.30); RED CELL DISTRIBUTION WIDTH 15.1 % (11.6-17.2); WHITE BLOOD COUNT 10.9 TH/MM3 (4.0-11.0)
[2016-12-31] MEDS: IBUPROFEN 600 MG TAB PO PRN ×3 (06:35→18:34)
--- NOTE | 2016-12-31 11:26 | HHI.OB ---
Subjective Post Operative Day: 1 Remarks POD#1; Doing well, stable Objective Vitals/I&O Vital Signs Date Time Temp Pulse Resp B/P Pulse Ox O2 Delivery O2 Flow Rate FiO2 12/30/16 12:01 16 Result Diagram: 12/31/16 0447 12/29/16 1708 Objective Remarks GENERAL: Well-nourished, well-developed patient. CARDIOVASCULAR: Regular rate and rhythm without murmurs, gallops, or rubs. RESPIRATORY: Breath sounds equal bilaterally. No accessory muscle use. ABDOMEN/GI: Abdomen soft, non-tender, bowel sounds present. Incision: Clean, dry and intact. Fundus: Firm, non-tender at umbilicus. GENITOURINARY: Light to moderate bleeding. EXTREMITIES: No cyanosis or edema, non-tender, without signs of DVT. Medications and IVs Current Medications Medications (Trade) Dose Ordered Sig/Nupur Route Start Time Stop Time Status Last Admin (Calcium Gluconate Inj) 1 gm UNSCH PRN IV PUSH 12/30/16 03:00 (NS Flush) 2 ml BID IV 12/30/16 09:00 (NS Flush) 2 ml UNSCH PRN IV 12/30/16 03:00 (Mylicon Chew) 80 mg QID PRN PO 12/30/16 03:00 (Motrin) 600 mg Q6H PRN PO 12/30/16 03:00 12/31/16 06:35 (Percocet 5-325 Mg) 1 tab Q4H PRN PO 12/30/16 03:00 (Percocet 5-325 Mg) 2 tab Q4H PRN PO 12/30/16 03:00 (Megan-Colace) 2 tab Q12H PRN PO 12/30/16 03:00 (Ambien) 5 mg HS PRN PO 12/30/16 03:00 (M-M-R Ii Inj) 0.5 ml ONCE ONCE SQ 12/31/16 16:00 12/31/16 16:01 (Boostrix Inj) 0.5 ml ONCE ONCE IM 12/31/16 16:00 12/31/16 16:01 Ondansetron HCl 4 mg 4 mg Q6H PRN IV PUSH 12/30/16 03:00 Lactated Ringer's 1,000 ml @ 75 mls/hr [id number] IV 12/30/16 22:30 (Magnesium Sulfate 40 Gm Premix) 1,000 ml @ 50 mls/hr Q20H IV 12/30/16 22:30 (Calcium Gluconate Inj) 1 gm UNSCH PRN IV PUSH 12/30/16 22:30 Assessment/Plan Assessment and Plan POD#1; stable, add abdominal binder Discharge Planning Plan for monday Attending Attestation Seen by Juan He MD Dec 31, 2016 11:26
[2016-12-31] MEDS ORDERED: MEASLES, MUMPS, RUBELLA VACCINE 0.5 ML VIAL SQ ONE (16:00)
[2016-12-31] MEDS ORDERED: DIPHTH/TETANUS/ACEL PERTUSSIS (BOOSTER) 0.5 ML VIAL/PFS IM ONE (16:00)
[2016-12-31] MEDS: oxyCODONE/ACETAMINOPHEN 5 MG/325 MG TAB PO PRN (18:02)
[2016-12-31] MEDS: DOCUSATE SODIUM 50 MG/SENNA 8.6 MG TAB PO PRN (18:34)
[2016-12-31] MEDS: SODIUM CHLORIDE 0.9% FLUSH 5 ML FLUSH IV SCH (21:00)
[2017-01-01] MEDS: oxyCODONE/ACETAMINOPHEN 5 MG/325 MG TAB PO PRN ×4 (01:01→18:16)
[2017-01-01] MEDS: IBUPROFEN 600 MG TAB PO PRN ×4 (01:01→18:16)
[2017-01-01 02:01] VITALS: RESP 18
[2017-01-01] MEDS: DOCUSATE SODIUM 50 MG/SENNA 8.6 MG TAB PO PRN (06:28)
--- NOTE | 2017-01-01 11:16 | HHI.OB ---
Subjective Post Operative Day: 2 Remarks POD#2; Stable Objective Vitals/I&O Vital Signs Date Time Temp Pulse Resp B/P Pulse Ox O2 Delivery O2 Flow Rate FiO2 01/01/17 02:01 18 01/01/17 02:01 18 12/31/16 19:02 18 Result Diagram: 12/31/16 0447 12/29/16 1708 Objective Remarks GENERAL: Well-nourished, well-developed patient. CARDIOVASCULAR: Regular rate and rhythm without murmurs, gallops, or rubs. RESPIRATORY: Breath sounds equal bilaterally. No accessory muscle use. ABDOMEN/GI: Abdomen soft, non-tender, bowel sounds present. Incision: Clean, dry and intact. Fundus: Firm, non-tender at umbilicus. GENITOURINARY: Light to moderate bleeding. EXTREMITIES: No cyanosis or edema, non-tender, without signs of DVT. Medications and IVs Current Medications Medications (Trade) Dose Ordered Sig/Nupur Route Start Time Stop Time Status Last Admin (Calcium Gluconate Inj) 1 gm UNSCH PRN IV PUSH 12/30/16 03:00 (NS Flush) 2 ml BID IV 12/30/16 09:00 (NS Flush) 2 ml UNSCH PRN IV 12/30/16 03:00 (Mylicon Chew) 80 mg QID PRN PO 12/30/16 03:00 (Motrin) 600 mg Q6H PRN PO 12/30/16 03:00 01/01/17 06:32 (Percocet 5-325 Mg) 1 tab Q4H PRN PO 12/30/16 03:00 01/01/17 06:29 (Percocet 5-325 Mg) 2 tab Q4H PRN PO 12/30/16 03:00 12/31/16 18:02 (Megan-Colace) 2 tab Q12H PRN PO 12/30/16 03:00 01/01/17 06:28 (Ambien) 5 mg HS PRN PO 12/30/16 03:00 Ondansetron HCl 4 mg 4 mg Q6H PRN IV PUSH 12/30/16 03:00 Lactated Ringer's 1,000 ml @ 75 mls/hr [id number] IV 12/30/16 22:30 (Magnesium Sulfate 40 Gm Premix) 1,000 ml @ 50 mls/hr Q20H IV 12/30/16 22:30 (Calcium Gluconate Inj) 1 gm UNSCH PRN IV PUSH 12/30/16 22:30 Assessment/Plan Assessment and Plan POD#2; concerns, service delivery consultant not available until tomorrow. stable, Discharge Planning Plan for monday Attending Attestation Seen by Juan He MD Jan 01, 2017 11:16
[2017-01-02] MEDS: IBUPROFEN 600 MG TAB PO PRN ×3 (00:01→14:24)
[2017-01-02] MEDS: DOCUSATE SODIUM 50 MG/SENNA 8.6 MG TAB PO PRN (00:01)
[2017-01-02] MEDS: oxyCODONE/ACETAMINOPHEN 5 MG/325 MG TAB PO PRN ×2 (00:01→06:05)
--- NOTE | 2017-01-02 10:24 | HHI.OB ---
Subjective Post Operative Day: 3 Objective Vitals/I&O bp 160's/90-100's Result Diagram: 12/31/16 6793 12/29/16 1708 Objective Remarks GENERAL: Well-nourished, well-developed patient. CARDIOVASCULAR: Regular rate and rhythm without murmurs, gallops, or rubs. RESPIRATORY: Breath sounds equal bilaterally. No accessory muscle use. ABDOMEN/GI: Abdomen soft, non-tender, bowel sounds present. Incision: Clean, dry and intact. Fundus: Firm, non-tender at umbilicus. GENITOURINARY: Light to moderate bleeding. EXTREMITIES: No cyanosis or edema, non-tender, without signs of DVT. Medications and IVs Current Medications Medications (Trade) Dose Ordered Sig/Nupur Route Start Time Stop Time Status Last Admin (Calcium Gluconate Inj) 1 gm UNSCH PRN IV PUSH 12/30/16 03:00 (NS Flush) 2 ml BID IV 12/30/16 09:00 (NS Flush) 2 ml UNSCH PRN IV 12/30/16 03:00 (Mylicon Chew) 80 mg QID PRN PO 12/30/16 03:00 (Motrin) 600 mg Q6H PRN PO 12/30/16 03:00 01/02/17 06:05 (Percocet 5-325 Mg) 1 tab Q4H PRN PO 12/30/16 03:00 01/02/17 06:05 (Percocet 5-325 Mg) 2 tab Q4H PRN PO 12/30/16 03:00 01/01/17 12:11 (Megan-Colace) 2 tab Q12H PRN PO 12/30/16 03:00 01/02/17 00:01 (Ambien) 5 mg HS PRN PO 12/30/16 03:00 Ondansetron HCl 4 mg 4 mg Q6H PRN IV PUSH 12/30/16 03:00 Lactated Ringer's 1,000 ml @ 75 mls/hr [id number] IV 12/30/16 22:30 (Magnesium Sulfate 40 Gm Premix) 1,000 ml @ 50 mls/hr Q20H IV 12/30/16 22:30 (Calcium Gluconate Inj) 1 gm UNSCH PRN IV PUSH 12/30/16 22:30 Assessment/Plan Problem List: (1) S/P section Plan: routine (2) Hypertension affecting , antepartum, third trimester Plan: will start on labetalol 100mg 1 bid Assessment and Plan POD#3 pt doing well bp 150-160's/90-100's will start on labetalol 100mg bid pain well managed with oral pain medication bonding with infant pt getting support routine Discharge Planning dc home today f/u in office this week Yoselyn Richter Jan 02, 2017 10:24
[2017-01-02] MEDS ORDERED: LABE100T2 PO (11:07)
[2017-01-02] MEDS ORDERED: LABETALOL HCL 100 MG TAB PO ONE (11:45)
--- NOTE | 2017-01-02 16:04 | HHI.DS ---
Admission Date Dec 29, 2016 at 03:17 Discharge Date: Jan 02, 2017 Admitting Diagnosis TERM SROM Diagnosis: (1) S/P section Diagnosis: Principal (2) Preeclampsia Diagnosis: Secondary Delivery Date: Dec 30, 2016 : Primary Reason: TERM : Male Brief History TERM SROM ARREST OF DESCENT PREECLAMPSIA, TREATED WITH MAGNESIUM SULFATE PRIMARY C SECTION ROUTINE CARE Hospital Course TERM SROM ARREST OF DESCENT PREECLAMPSIA PRIMARY C SECTION ANEMIA ROUTINE Pt Condition on Discharge: Good Discharge Disposition: Discharge Home Discharge Instructions Diet Instructions: As Tolerated, No Restrictions Additional Diet Instructions: Drink at least 8 - 16 oz bottles of water a day Activities You Can Perform: Shower Only-No Bath Activities to Avoid: Prolonged Standing, Strenuous Activity, Sexual Activity Additional Activity Instruc.: No driving until off pain medications Do not lift anything heavier than your baby in an infant carrier Follow up Referrals: MANAGER TELEMETRY - 1 Week @ [facility] [place] New Medications: Labetalol (Labetalol) 100 Mg Tab 100 MG PO BID Blood Pressure Management #30 Ref 0 TAB Ibuprofen (Ibuprofen) 600 Mg Tab 600 MG PO Q6H Pain Management #30 Ref 1 TAB Oxycodone-Acetaminophen (Oxycodone-Acetaminophen) 5-325 mg Tab 1 TAB PO Q4H moderate pain #30 TAB Continued Medications: Vitamin (Calna) 1 Tab Tab Yoselyn Richter Jan 02, 2017 16:04
== END 2017-01-02 14:27 | disposition home or self-care (01) | DRG 766 ==
LOC: HOBED 02:48 → H2EA 03:17 → H1EA 12-31 08:44
PROVIDERS: ADMIT Obstetrics & Gynecology; ATTEND Obstetrics & Gynecology
PROC: 10D00Z1 Extraction of Products of Conception, Low, Open Approach (ICD-10-PCS; principal; 2016-12-29)
PROC: 3E0R3CZ (ICD-10-PCS; 2016-12-29)
PROC: 00HU33Z Insertion of Infusion Device into Spinal Canal, Percutaneous Approach (ICD-10-PCS; 2016-12-29)
DX: O14.94 Unspecified pre-eclampsia, complicating childbirth (principal); O72.1 Other immediate postpartum hemorrhage; O99.824 Streptococcus B carrier state complicating childbirth; D64.9 Anemia, unspecified; O62.1 Secondary uterine inertia; O99.02 Anemia complicating childbirth; Z37.0 Single live birth; Z3A.40 40 weeks gestation of pregnancy
CPT/HCPCS: 59025; 80053; 81001; 84112; 85025; 86900; 86901; 87086; 88307; 90715; J0690; J1100; J1130; J1200; J2175; J2250; J2274; J2405; J2540; J2550; J2590; J2765; J3010; J3475; J7120